=== PATIENT | male | born 1975 | race Caucasian/White ===

== ENCOUNTER 2019-01-11 19:11 | Emergency (ER) | payer SELFPAY ==
[2019-01-11 19:22] VITALS: BP 112/67
[2019-01-11] MEDS ORDERED: KETOROLAC TROMETHAMINE 60 MG/2 ML SDV IM ONE (20:26)
[2019-01-11] MEDS ORDERED: CLINDAMYCIN HCL 150 MG CAPSULE PO ONE (20:26)
--- NOTE | 2019-01-11 20:27 | ER Document Report ---
ED General - General Chief Complaint: Toothache Stated Complaint: TOOTH PAIN Time Seen by Provider: 01/11/19 19:39 Notes: Patient is a 43-year-old male without chronic medical problems presents complaining of diffuse dental pain. Patient states "I have been ignoring my teeth for a long time" states that they have become increasingly painful over the last 1-2 weeks. States the majority the pain is located to his right mandibular molars as well as some to the upper right molars. Denies associated difficulty swallowing, difficulty breathing, fever or constitutional symptoms. Has not trying to improve his pain. Eating or drinking worsens his pain. Does not have a primary care physician or dentist. Pain is described as a throbbing, aching, shooting pain. TRAVEL OUTSIDE OF THE [place] IN LAST 30 DAYS: No - Related Data Allergies/Adverse Reactions: No Known Allergies Allergy (Unverified 01/11/19 20:05) Past Medical History - General Information source: Patient - Social History Smoking Status: Current Every Day Smoker Frequency of alcohol use: Social Drug Abuse: None Lives with: Spouse/Significant other Family History: Reviewed & Not Pertinent Patient has suicidal ideation: No Patient has homicidal ideation: No Renal/ Medical History: Denies: Hx Peritoneal Dialysis Review of Systems - Review of Systems Notes: Constitutional: Negative for fever. HENT: Positive for dental pain Eyes: Negative for visual changes. Cardiovascular: Negative for chest pain. Respiratory: Negative for shortness of breath. Gastrointestinal: Negative for abdominal pain, vomiting or diarrhea. Genitourinary: Negative for dysuria. Musculoskeletal: Negative for back pain. Skin: Negative for rash. Neurological: Negative for headaches, weakness or numbness. 10 point ROS negative except as marked above and in HPI. Physical Exam - Vital signs Vitals: Temp Pulse Resp BP Pulse Ox 99.8 F 69 15 112/67 97 01/11/19 19:21 01/11/19 19:21 01/11/19 19:21 01/11/19 19:21 01/11/19 19:21 Interpretation: Normal Notes: PHYSICAL EXAMINATION: GENERAL: Well-appearing, well-nourished and in no acute distress. HEAD: Atraumatic, normocephalic. EYES: Pupils equal round and reactive to light, extraocular movements intact, sclera anicteric, conjunctiva are normal. ENT: Diffusely poor dentition with dental caries throughout virtually all [place] teeth. No evidence of periapical abscesses. Airway is widely patent. No tongue elevation. Nares patent, oropharynx clear without exudates. Moist m ucous membranes. NECK: Normal range of motion, supple without lymphadenopathy LUNGS: Breath sounds clear to auscultation bilaterally and equal. No wheezes rales or rhonchi. HEART: Regular rate and rhythm without murmurs ABDOMEN: Soft, nontender, normoactive bowel sounds. No guarding, no rebound. No masses appreciated. EXTREMITIES: Normal range of motion, no pitting or edema. No cyanosis. NEUROLOGICAL: No focal neurological deficits. Moves all extremities spontaneously and on command. PSYCH: Normal mood, normal affect. SKIN: Warm, Dry, normal turgor, no rashes or lesions noted. Course - Re-evaluation Re-evalutation: 01/11/19 20:26 Presentation is most consistent with likely an infected tooth. Airway is patent. Vitals within normal limits. Patient is able swallow without any difficulty. There is no significant facial swelling. No evidence of Kirk angina, apical abscess, or airway obstruction. Patient will be started on antibiotics. I've instructed to follow-up with dentistry as earliest ability for definitive management. At this time will discharge with return precautions and follow-up recommendations. Verbal discharge instructions given a the bedside and opportunity for questions given. Medication warnings reviewed. Patient is in agreement with this plan and has verbalized understanding of return precautions and the need for primary care follow-up in the next 24-72 hours. - Vital Signs Vital signs: Temp Pulse Resp BP Pulse Ox 99.8 F 69 15 112/67 97 01/11/19 19:21 01/11/19 19:21 01/11/19 19:21 01/11/19 19:21 01/11/19 19:21 Discharge - Discharge Clinical Impression: Dental caries, Pain, dental Condition: Good Disposition: HOME, SELF-CARE Additional Instructions: You have been seen for dental pain. It is very important that you follow-up with a dentist for definitive care. Please return if you develop fever greater than 101, swelling in your face, vomiting, difficulty breathing or swallowing, or any other symptoms that are concerning to you. For pain you should take ibuprofen 600 mg every 6 hours as needed. Prescriptions: Clindamycin HCl 300 mg PO TID #30 capsule
== END 2019-01-11 20:40 | disposition home or self-care (01) ==
LOC: ER 19:11
DX: K02.9 Dental caries, unspecified (principal); K08.89 Other specified disorders of teeth and supporting structures; F17.200 Nicotine dependence, unspecified, uncomplicated
CPT/HCPCS: 99282; 96372; J1885

== ENCOUNTER 2019-03-15 10:29 | Emergency (ER) | payer SELFPAY ==
[2019-03-15] MEDS ORDERED: LIDOCAINE 1% INJ-PF (10 MG/ML) 30 ML SDV INJ ONE (11:06)
[2019-03-15] MEDS ORDERED: LIDOCAINE 1.5%/EPINEPHRINE INJ-PF 30 ML SDV INJ ONE (11:07)
--- NOTE | 2019-03-15 11:10 | ER Document Report ---
Addendum entered and electronically signed by PHILIP MORRIS PA-C 03/15/19 13:46: Procedures - Immobilization Left Thumb Time completed: 13:40 Pre-Proc Neuro Vasc Exam: Normal Immobilizer type: Thumb spica Performed by: PCT Post-Proc Neuro Vasc Exam: Normal, Unchanged from pre-exam - Laceration/Wound Repair Left Hand Wound length (cm): 4 Wound's Depth, Shape: Superficial, Linear Laceration pre-procedure: Sterile PPE donned, Sterile drapes applied, Other - chlorhexadine/saline Anesthetic type: 1% Lidocaine w/epi Volume Anesthetic (mLs): 350 Wound explored: No foreign body removed Wound Debrided: Minimal Wound Repaired With: Sutures Suture Size/Type: 4:0, Nylon Number of Sutures: 5 Layer Closure?: No Post-procedure wound care: Sterile dressing applied, Splint applied Post-procedure NV exam normal: Yes Complications: No Original Note: ED General - General TRAVEL OUTSIDE OF THE [place] IN LAST 30 DAYS: No - General Chief Complaint: Laceration Stated Complaint: LACERATION Time Seen by Provider: 03/15/19 10:48 Primary Care Provider: [facility] [Provider Group] - Follow up as needed - [facility] Notes: Patient is a 43-year-old male with no significant past medical history who presents emergency department complaining of laceration to his left dorsal lateral hand by a piece of metal prior to arrival. Patient states that he may have caught in artery as it was spritzing out. Patient states that he does have difficulty with extension of his thumb, but no other issues with movement of his fingers. Last tetanus was within the last year. Denies drug allergies or IV drug abuse. He is not on any blood thinning medications. Denies any headache, fever, neck pain, URI, sore throat, chest pain, palpitations, syncope, cough, shortness of breath, wheeze, dyspnea, abdominal pain, nausea/vomiting/diarrhea, urinary retention, dysuria, hematuria, or rash. (PHILIP MORRIS) - Related Data Allergies/Adverse Reactions: No Known Allergies Allergy (Verified 03/15/19 10:30) Past Medical History - Social History Smoking Status: Current Every Day Smoker Frequency of alcohol use: Occasional Drug Abuse: None Family History: Reviewed & Not Pertinent Patient has suicidal ideation: No Patient has homicidal ideation: No Renal/ Medical History: Denies: Hx Peritoneal Dialysis Review of Systems - Review of Systems -: Yes All other systems reviewed and negative Physical Exam - Vital signs Vitals: Temp Pulse Resp BP Pulse Ox 97.4 F 62 18 136/79 H 99 03/15/19 10:34 03/15/19 10:34 03/15/19 10:34 03/15/19 10:34 03/15/19 10:34 - Notes Notes: PHYSICAL EXAMINATION: GENERAL: Well-appearing, well-nourished and in no acute distress. LUNGS: Breath sounds clear to auscultation bilaterally and equal. No wheezes rales or rhonchi. HEART: Regular rate and rhythm without murmurs, rubs, gallops. Musculoskeletal: Left hand: LROM to extension of the left thumb. FROM to passive/active otherwise. Strength 5+/5. N/v intact. Extremities: No cyanosis, clubbing, or edema b/l. Peripheral pulses 2+. Capillary refill less than 3 seconds. NEUROLOGICAL: Normal speech, normal gait. Normal sensory, motor exams PSYCH: Normal mood, normal affect. SKIN: left lateral dorsal hand near thumb: + ?arterial vs venous bleeding when dressing taken off with noted approx 4cm laceration. (PHILIP MORRIS) Course - Re-evaluation Re-evalutation: 03/15/19 13:17 Patient is a 43-year-old male who presents to the ED with a left hand laceration. Vitals are acceptable. PE is otherwise unremarkable for any neurovascular compromise, obvious tendon/ligament rupture, obvious fracture/disl ocation, septic joint. The vessel that was bleeding was found to most likely be a vein that was evaluated by Dr. Hutchison who also placed absorbable sutures to tie it off. Tetanus is reported to be up-to-date. X-ray was unremarkable for any acute pathology aside from a small 2mm radiopaque foreign body. Wound was thoroughly irrigated and cleansed. I was unable to locate the very small foreign body but reviewed with patient that it should not cause any issues if it remains and may over time come out on its own. Wound edges were approximated appropriately utilizing 2 simple interrupted and 3 horizontal mattress sutures. Wound dressing/thumb spica was placed and wound instructions reviewed. No other labs or imaging warranted at this time based on H&P. I will be sending her home with a prescription for augmentin. Conservative measures otherwise for symptoms. Sutures will need removed in about 10-12 days. Recheck with your PCM in 2-3 days. Consider consult orthopedics. Return to the ED with any worsening/concerning symptoms otherwise as reviewed in discharge. Patient is in agreement. (PHILIP MORRIS) 03/15/19 14:50 I did personally seen and examined this patient in conjunction with DEION Gibson. Patient sustained a traumatic laceration to the dorsal aspect of the left hand over top of the first metacarpal. There was copious bleeding from a par tially lacerated blood vessel, I did ligate this using a 5-0 absorbable sutures. We used lidocaine with epinephrine to create a bloodless field and then explored to the area, no tendons or ligaments were visualized to be injured. Patient did retain full range of motion of his left thumb. I agree with the rest of the course as documented by Philip Morris (IVETH HUTCHISON) - Vital Signs Vital signs: Temp Pulse Resp BP Pulse Ox 98 F 66 16 109/74 97 03/15/19 13:56 03/15/19 13:56 03/15/19 13:56 03/15/19 13:56 03/15/19 13:56 Procedures - Laceration/Wound Repair Left Hand Time completed: 13:15 Wound length (cm): 4 Wound's Depth, Shape: Superficial, Linear Laceration pre-procedure: Sterile PPE donned, Sterile drapes applied, Other - chlorhexadine/saline Anesthetic type: 1% Lidocaine w/epi Volume Anesthetic (mLs): 7 Wound explored: No foreign body removed - unless it came out with the extensive irrigation Irrigated w/ Saline (mLs): 400 Wound Debrided: Minimal Wound Repaired With: Sutures Suture Size/Type: 4:0, Nylon Number of Sutures: 5 Layer Closure?: No Post-procedure wound care: Sterile dressing applied, Splint applied Post-procedure NV exam normal: Yes Complications: No Discharge - Discharge Clinical Impression: Laceration of left hand Qualifiers: Encounter type: initial encounter Foreign body presence: with foreign body Qualified Code(s): S61.422A - Laceration with foreign body of left hand, initial encounter Condition: Stable Disposition: HOME, SELF-CARE Instructions: Antibiotic Ointment Protection ([facility]), Laceration Care ([facility]), Prophylactic Antibiotic ([facility]), Soap Cleansing ([facility]) Additional Instructions: Do not shower or bathe for 24 hours. After 24 hours you may shower but no submersion of the wound under water. Keep the original dressing on the wound for 24 hours unless the drainage soaks through. Change the dressing daily thereafter and keep the knots of the suture material clean from any dried discharge. You may leave the wound open to the air once there is no more di scharge. Return to the ED and/or your PCM in 2-3 days for a recheck. Monitor for any signs of worsening pain or redness, purulent drainage, streaks, and/or fever. Return to the ED if noticing any of the above symptoms or as needed. Take medications as directed. Your sutures will need to be removed in 10-12 days. Prescriptions: Amox Tr/Potassium Clavulanate [Augmentin 875-125 Tablet] 1 tab PO BID #10 tablet Amox Tr/Potassium Clavulanate [Augmentin 875-125 Tablet] 1 tab PO BID #10 tablet Forms: Elevated Blood Pressure, Smoking Cessation Education, Return to Work Referrals: [facility] ([place] [Provider Group] - Follow up as needed
[2019-03-15] MEDS ORDERED: LIDOCAINE 1%/EPINEPHRINE INJ 20 ML VIAL INJ ONE (11:20)
[2019-03-15] MEDS ORDERED: TRANEXAMIC ACID INJ/PF 1,000 MG/10 ML SDV IV ONE (11:37)
--- NOTE | 2019-03-15 11:46 | RADIOLOGY REPORT (SQ) ---
EXAM DESCRIPTION: HAND LEFT 3 VIEWS COMPLETED DATE/TIME: 03/15/2019 11:19 am REASON FOR STUDY: left hand laceration, dorsal lateral COMPARISON: None. EXAM PARAMETERS: NUMBER OF VIEWS: Three views. TECHNIQUE: AP, lateral and oblique radiographic images acquired of the left hand. LIMITATIONS: None. FINDINGS: MINERALIZATION: Normal. BONES: No acute fracture or dislocation. No worrisome bone lesions. JOINTS: No effusions. SOFT TISSUES: Soft tissue laceration along the radial aspect of the wrist joint. A 2 mm radiopaque f oreign body is present in the laceration. OTHER: No other significant finding. IMPRESSION: Soft tissue laceration along the radial aspect of the wrist joint. A 2 mm radiopaque fo reign body is present in the laceration. TECHNICAL DOCUMENTATION: JOB ID: [id number]- All Rights Reserved Reading location - IP/workstation name: [email or web address]
[2019-03-15] MEDS ORDERED: OXYCODONE HCL IR 5 MG TABLET PO ONE (11:58)
[2019-03-15 13:58] VITALS: BP 109/74
== END 2019-03-15 13:56 | disposition home or self-care (01) ==
LOC: ER 10:29
DX: S61.422A Laceration with foreign body of left hand, initial encounter (principal); W45.8XXA Other foreign body or object entering through skin, initial encounter; F17.200 Nicotine dependence, unspecified, uncomplicated
CPT/HCPCS: 99283; 96374; 73130; 12002; J3490 ×4

== ENCOUNTER 2020-02-08 14:18 | Emergency (ER) | payer SELFPAY ==
[2020-02-08] MEDS ORDERED: IBUPROFEN 800 MG TABLET PO ONE (14:44)
--- NOTE | 2020-02-08 14:48 | ER Document Report ---
HPI - HPI Patient complains to provider of: left wrist pain Time Seen by Provider: 02/08/20 14:41 Onset: Just prior to arrival Onset/Duration: Sudden Quality of pain: Achy Context: 44-year-old male presents with left wrist pain after he fell over his own feet and landed onto his outstretched left hand. Patient complains of pain with movement. Reports he can move his fingers in his hand and his wrist but it still hurts. Denies past medical history of injury to the wrist. Denies other symptoms such as fever vomiting diarrhea. Denies cough shortness of breath. Associated Symptoms: None Exacerbated by: Movement Relieved by: Denies Similar symptoms previously: No Recently seen / treated by doctor: No Past Medical History - General Information source: Patient - Social History Smoking Status: Current Every Day Smoker Cigarette use (# per day): Yes Frequency of alcohol use: Occasional Drug Abuse: None Lives with: Homeless Family History: Reviewed & Not Pertinent Patient has suicidal ideation: No Patient has homicidal ideation: No - Medical History Medical History: Negative Renal/ Medical History: Denies: Hx Peritoneal Dialysis Surgical Hx: Negative Vertical Provider Document - CONSTITUTIONAL Agree With Documented VS: Yes Exam Limitations: No Limitations General Appearance: WD/WN, No Apparent Distress - INFECTION CONTROL TRAVEL OUTSIDE OF THE [place] IN LAST 30 DAYS: No - HEENT HEENT: Atraumatic, Normocephalic, PERRLA. negative: Conjuctival Injection - NECK Neck: Supple - RESPIRATORY Respiratory: No Respiratory Distress - CARDIOVASCULAR Cardiovascular: Regular Rate - MUSCULOSKELETAL/EXTREMETIES Musculoskeletal/Extremeties: MAEW, FROM, Tender - Left wrist tender to palpate no obvious deformity cap refill less than 2 seconds radial pulse +3 some tenderness to the snuffbox. No swelling no erythema no ecchymosis - NEURO Level of Consciousness: Awake, Alert, Appropriate Motor/Sensory: No Motor Deficit - DERM Integumentary: Warm, Dry Adult Front & Back Diagram: 1 - Patient complains of pain Course - Re-evaluation Re-evalutation: 02/08/20 14:47 This 44-year-old male presents with left wrist pain post fall. Reports he tripped over his own feet and fell on his outstretched hand. Patient complains of left wrist pain and some snuffbox ttp. Patient has not taken anything for pain. Ibuprofen and x-rays ordered. 02/08/20 16:10 X-ray negative for acute fracture. Concerned about hidden fracture due to scaphoid tenderness will protect the area with thumb spica. Patient was also placed in a sling. Instructed on ibuprofen for pain instructed on orthopedic follow-up. He verbalized understanding. Patient was also instructed to return here for worsening symptoms or concerns. Concerned patient will not follow-up because he is homeless. I instructed him to return here for any worsening symptoms increasing pain concerns he verbalized understanding to all instructions. Wrist X-Ray 02/08/20 14:44 IMPRESSION: No evidence of acute osseous injury. - Diagnostic Test Radiology reviewed: Image reviewed, Reports reviewed Procedures - Immobilization Left Hand Immobilizer type: Thumb spica Performed by: PCT Post-Proc Neuro Vasc Exam: Unchanged from pre-exam Alignment checked and good: Yes Discharge - Discharge Clinical Impression: Left wrist pain, scaphoid tenderness Condition: Stable Disposition: HOME, SELF-CARE Instructions: Ibuprofen (General) ([facility]) Additional Instructions: *You have been evaluated for left wrist pain *Your x-ray was negative for any acute fracture. You are tender in the scaphoid area. This could indicate a hidden fracture. We have placed a thumb spica splint. You need to follow-up with orthopedics for continued pain and evaluation. *Maintain the splint *Rest/Ice/Elevate your wrist *Follow up with orthopedics for continued pain within one week *Take ibuprofen as indicated *Return to ED for worsening condition, changes, needs Monitor your blood pressure. Your blood pressure was elevated today. This may be because you were anxious, in pain or because you need medication. It is im portant to follow up with your primary care provider for full evaluation. Prescriptions: Ibuprofen [Motrin 800 mg Tablet] 800 mg PO TID #20 tablet Forms: Elevated Blood Pressure Referrals: KAYE BAKER JR, DO [ACTIVE PROVISIONAL STAFF] - Follow up in 3-5 days
[2020-02-08 14:49] VITALS: BP 150/84
--- NOTE | 2020-02-08 15:33 | RADIOLOGY REPORT (SQ) ---
EXAM DESCRIPTION: WRIST LEFT 3 VIEWS COMPLETED DATE/TIME: 02/08/2020 3:18 pm REASON FOR STUDY: wrist snuff box pain COMPARISON: None. NUMBER OF VIEWS: Four views. TECHNIQUE: AP, lateral, and oblique radiographic images acquired of the left wrist. LIMITATIONS: None. FINDINGS: MINERALIZATION: Normal. BONES: No acute fracture or dislocation. No worrisome bone lesions. Normal alignment. SOFT TISSUES: No soft tissue swelling. No foreign body. OTHER: No other significant finding. IMPRESSION: No evidence of acute osseous injury. TECHNICAL DOCUMENTATION: JOB ID: [id number] 2010 [employer]- All Rights Reserved Reading location - IP/workstation name: [email or web address]
== END 2020-02-08 16:07 | disposition home or self-care (01) ==
LOC: ER 14:18
DX: M25.532 Pain in left wrist (principal); W01.0XXA Fall on same level from slipping, tripping and stumbling without subsequent striking against object, initial encounter; F17.210 Nicotine dependence, cigarettes, uncomplicated
CPT/HCPCS: 99283

== ENCOUNTER 2020-02-11 17:50 | Emergency (ER) | payer SELFPAY ==
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
[2020-02-11 18:43] LABS: APPEARANCE,URINE CLEAR; BILIRUBIN,URINE NEGATIVE (NEGATIVE); COLOR,URINE YELLOW; GLUCOSE, URINE NEGATIVE (NEGATIVE); KETONES,URINE NEGATIVE (NEGATIVE); LEUKOCYTE ESTERASE,URINE NEGATIVE (NEGATIVE); NITRITE,URINE NEGATIVE (NEGATIVE); PROTEIN,URINE NEGATIVE (NEGATIVE); URINE SPECIFIC GRAVITY 1.024
[2020-02-11 18:55] LABS: ABSOLUTE EOSINOPHILS # (AUTO) 0.1 10^3/uL (0.0-0.6); ABSOLUTE LYMPHOCYTES (AUTO) 1.1 10^3/uL (0.5-4.7); ABSOLUTE MONOCYTES (AUTO) 0.5 10^3/uL (0.1-1.4); BASOPHILS % (AUTO) 0.7 % (0-2); EOSINOPHILS % (AUTO) 1.9 % (0-6); HEMATOCRIT 42.4 % (37.9-51.0); HEMOGLOBIN 14.9 g/dL (13.5-17.0); LYMPHOCYTES % (AUTO) 24.1 % (13-45); MEAN CORPUSCULAR HEMOGLOBIN 33.9 pg (27.0-33.4); MEAN CORPUSCULAR HGB CONC 35.1 g/dL (32.0-36.0); MEAN CORPUSCULAR VOLUME 97 fl (80-97); PLATELET COUNT 159 10^3/uL (150-450); RED BLOOD COUNT 4.39 10^6/uL (4.35-5.55); RED CELL DISTRIBUTION WIDTH 13.6 % (11.5-14.0); SEGMENTED NEUTROPHILS % (AUTO) 63.3 % (42-78); TOTAL CELLS COUNTED % (AUTO) 100 %; WHITE BLOOD COUNT 4.8 10^3/uL (4.0-10.5)
--- NOTE | 2020-02-11 18:58 | ER Document Report ---
ED Psych Disorder / Suicide - General Chief Complaint: Suicidal Ideation Stated Complaint: PSYCH EVAL Time Seen by Provider: 02/11/20 18:03 Mode of Arrival: Ambulatory Notes: Patient is a 44-year-old male who presents to the emergency department with a chief complaint of suicidal ideation. Patient states that he has felt like this ever since he has been homeless. Patient states that he has a history of bipolar disorder, schizophrenia, geeta, and depression. He states that he wants to walk out into oncoming traffic. He was recently evaluated by [facility] after he was seen here in the emergency department on February 07. Patient states that he is an everyday drinker, but has not drank since the . Patient admits to smoking every day. He denies any past medical history that he knows of. Patient is supposed to be on psychiatric medication, but states, "they were stolen after I was put on the streets." He was placed in a thumb spica 3 days ago, but was told to have it taken off when he went to [facility]. Patient admits to heroin use prior to going to [facility]. Patient is homeless and he has been walking a lot. States he has a popped blister on the palm of his left foot. TRAVEL OUTSIDE OF THE [place] IN LAST 30 DAYS: No - Related Data Allergies/Adverse Reactions: No Known Allergies Allergy (Verified 02/11/20 18:02) Past Medical History - General Information source: Patient - Social History Smoking Status: Current Every Day Smoker Chew tobacco use (# tins/day): No Frequency of alcohol use: None Drug Abuse: Methamphetamine Family History: Reviewed & Not Pertinent Patient has suicidal ideation: Yes Patient has homicidal ideation: No Renal/ Medical History: Denies: Hx Peritoneal Dialysis Review of Systems - Review of Systems Notes: REVIEW OF SYSTEMS: CONSTITUTIONAL : Denies recent illness. Denies recent unintentional weight loss. Denies fever, chills, or sweats. EENT: Denies eye, ear, throat, or mouth pain, discharge, or symptoms. Denies nasal or sinus congestion. CARDIOVASCULAR: Denies chest pain. RESPIRATORY: Denies shortness of breath, cough, congestion, difficulty breathing, or wheezing. GASTROINTESTINAL: Denies nausea, vomiting, and diarrhea. Denies abdominal pain. Denies constipation. GENITOURINARY: Denies difficulty urinating, burning, blood in urine, urgency or frequency. MUSCULOSKELETAL: Denies neck and back pain. Denies joint pain or swelling. SKIN: Denies rash, itchiness, or lesions HEMATOLOGIC : Denies easy bruising or bleeding. LYMPHATIC: Denies swollen, painful, enlarged glands. NEUROLOGICAL: Denies no numbness or tingling denies weakness. Denies headache. Denies altered mental status. Denies alteration in speech. PSYCHIATRIC: See HPI. All other systems reviewed and negative. Physical Exam - Vital signs Vitals: Temp Pulse Resp BP Pulse Ox 99.1 F 72 16 164/80 H 98 02/11/20 17:51 02/11/20 17:51 02/11/20 17:51 02/11/20 17:51 02/11/20 17:51 - Notes Notes: PHYSICAL EXAMINATION: GENERAL: Appears well, healthy, well-nourished, no acute distress. HEAD: Normocephalic, atraumatic. EYES: PERRL, conjunctiva normal, all extraocular movements intact, sclera nonicteric ENT: Moist mucous membranes. NECK: Supple, no noticeable swelling, redness, rash. Normal range of motion. LUNGS: Equal breath sounds bilaterally and clear to auscultation. No wheezes rales or rhonchi. CARDIOVASCULAR: S1-S2, regular rate, regular rhythm. Radial pulses 2+, normal. ABDOMEN: Normoactive bowel sounds. Soft, nontender, no guarding, no rebound tenderness, and no masses palpated. EXTREMITIES: Normal strength and range of motion, no pitting or edema. No c yanosis. NEUROLOGICAL: Moves all extremities upon command. Strength 5/5 in all extremities. Tenderness noted to anatomical snuffbox area from previous fall. PSYCH: Appears anxious. SKIN: Warm, dry. No rash, lesions, ulcerations noted. Normal skin turgor. Popped blister noted to left dorsal foot at ball of foot. Course - Re-evaluation Re-evalutation: 02/11/20 19:47 Hematology is unremarkable. Chemistries shows are normal. Patient has elevated liver enzymes, due to his alcohol use. Urinalysis is normal. Salicylates, acetaminophen, and alcohol are all negative. Awaiting urine drug screen. At this time, the patient is medically clear for mental health evaluation. Patient received Valium to help with possible alcohol withdrawals, as it has been 3 days since his last drink. We will place him back in a thumb spica, as there is a suspected scaphoid fracture of his left wrist. - Vital Signs Vital signs: Temp Pulse Resp BP Pulse Ox 99.1 F 72 16 164/80 H 98 02/11/20 17:51 02/11/20 17:51 02/11/20 17:51 02/11/20 17:51 02/11/20 17:51 - Laboratory Result Diagrams: 02/11/20 18:26 02/11/20 18:26 Laboratory results interpreted by me: 02/11/20 02/11/20 02/11/20 18:26 18:26 18:26 MCH 33.9 H Sodium 136.9 L AST 192 H ALT 153 H Urine Urobilinogen 4.0 H Salicylates < 1.0 L Acetaminophen < 10 L - EKG Interpretation by Me Additional EKG results interpreted by me: 02/11/20 19:29 Sinus rhythm. Rate 71. TN 144; QRS 86; QT 380; QTc 413. No ST elevations or depressions noted. Discharge - Discharge Clinical Impression: Suicidal ideation, Left wrist pain Condition: Stable Disposition: PSYCH HOSP/UNIT
[2020-02-11] MEDS ORDERED: DIAZEPAM 5 MG TABLET PO ONE (19:02)
[2020-02-11 19:12] LABS: ALBUMIN 3.8 g/dL (3.5-5.0); ALKALINE PHOSPHATASE 55 U/L (38-126); ANION GAP 6 (5-19); ASPARTATE AMINO TRANSFERASE 192 U/L (17-59); BILIRUBIN,TOTAL 0.7 mg/dL (0.2-1.3); BLOOD UREA NITROGEN 18 mg/dL (7-20); CALCIUM 9.1 mg/dL (8.4-10.2); CARBON DIOXIDE 29 mmol/L (22-30); CHLORIDE 102 mmol/L (98-107); GLUCOSE 98 mg/dL (75-110); POTASSIUM 4.4 mmol/L (3.6-5.0); TOTAL PROTEIN 6.9 g/dL (6.3-8.2)
[2020-02-11 19:13] LABS: ACETAMINOPHEN < 10 ug/mL (10-30); ALCOHOL < 10 mg/dL (NONE DETECTED); SALICYLATE < 1.0 mg/dL (2.0-20.0)
--- NOTE | 2020-02-11 20:01 | EKG REPORT ---
SEVERITY:- NORMAL ECG - SINUS RHYTHM : Confirmed by: Rosalia Kay MD 11-Feb-2020 20:00:47
[2020-02-11 20:21] LABS: URINE BARBITURATES SCREEN NEGATIVE; URINE BENZODIAZEPINES SCREEN NEGATIVE; URINE COCAINE SCREEN NEGATIVE; URINE MARIJUANA (THC) SCREEN NEGATIVE; URINE METHADONE SCREEN NEGATIVE; URINE PHENCYCLIDINE SCREEN NEGATIVE
[2020-02-11 20:23] LABS: URINE AMPHETAMINES SCREEN UNCONFIRMED POSITIVE
[2020-02-12] MEDS ORDERED: DIAZEPAM 5 MG TABLET PO ONE (09:42)
[2020-02-12] MEDS ORDERED: NICOTINE 21 MG/24 HR PATCH.TD24 TD ONE (09:42)
--- NOTE | 2020-02-12 10:02 | ER Document Report ---
Doctor's Note Notes: 02/12/20 10:00 PHYSICAL EXAMINATION: GENERAL: Appears well, healthy, well-nourished, no acute distress. LUNGS: Equal breath sounds bilaterally and clear to auscultation. No wheezes rales or rhonchi. CARDIOVASCULAR: S1-S2, regular rate, regular rhythm. Radial pulses 2+, normal. ABDOMEN: Normoactive bowel sounds. Soft, nontender, no guarding, no rebound tenderness, and no masses palpated. PSYCH: Normal mood, normal affect. Patient became angry at staff and states that he wanted to leave AGAINST MEDICAL ADVICE. According to the staff, he made statements of suicidal ideation stating "if you send me back to [facility], I am going to try to jump off this building." Patient states that he wanted to smoke a cigarette. Given that the patient is on day 4 of no alcohol, I gave him a dose of Valium to help him calm down. He was also provided a nicotine patch. 02/12/20 12:39 I had a lengthy conversation with Ivette, the mental health central processing technician and with the patient. Patient is agreeing to walk over to [facility] to get care. I expressed to the patient that it was very important to tell [facility] about his past psychological history. He is in agreement with this plan. Denies any suicidal or homicidal ideation at this time. Discussed this case with Dr. Mcmahon, my attending. Since the patient is able to make his own decisions, the patient will be discharged with instructions to go to [facility]. Follow-up precautions were given. Verbal discharge instructions were given to the patient. They verbalized understanding. They are stable for discharge.
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
[2020-02-12 13:07] VITALS: BP 143/70
== END 2020-02-12 13:04 | disposition home or self-care (01) ==
LOC: ER 17:50
DX: R45.851 Suicidal ideations (principal); M25.532 Pain in left wrist; Z59.0 Homelessness; F17.210 Nicotine dependence, cigarettes, uncomplicated; F15.10 Other stimulant abuse, uncomplicated; F10.988 Alcohol use, unspecified with other alcohol-induced disorder; R74.8 Abnormal levels of other serum enzymes
CPT/HCPCS: 36415; 80053; 80307; 81001; 85025; 93005; 93010; 99285

== ENCOUNTER 2020-02-12 22:28 | Emergency (ER) | payer SELFPAY ==
[2020-02-12 22:34] VITALS: BP 125/81
== END 2020-02-12 22:45 | disposition left against medical advice (07) ==
LOC: ER 22:28
DX: Z53.21 Procedure and treatment not carried out due to patient leaving prior to being seen by health care provider (principal)